=== PATIENT | female | born 1985 | race African-American/Black ===

== ENCOUNTER 2016-12-30 09:42 | Emergency (ER) | payer OTHER ==
[~2016-12-30 09:42] MED LIST: BEN25 PO; MIRAPEX250 PO; NEUR300 PO
== END 2016-12-30 10:23 | disposition home or self-care (01) ==
LOC: ER 09:42
DX: S16.1XXA Strain of muscle, fascia and tendon at neck level, initial encounter (principal); Z88.5 Allergy status to narcotic agent; Z88.1 Allergy status to other antibiotic agents; Z91.018 Allergy to other foods; Z79.899 Other long term (current) drug therapy; W19.XXXA Unspecified fall, initial encounter
CPT/HCPCS: 99283